=== PATIENT | male | born 1960 | race Caucasian/White ===

== ENCOUNTER 2020-08-19 10:00 | Outpatient (CLI) | payer SELFPAY ==
[~2020-08-19] VITALS: Ht 182.9 cm; Wt 99.8 kg
[2020-08-19] MEDS ORDERED: NO HOME MEDS (15:50)
[2020-08-21] MEDS ORDERED: ringers solution, lacted 1,000 ML IV SCH (05:00)
[2020-08-21] MEDS ORDERED: famotidine 20mg tablet PO ONE (05:30)
== END 2020-08-19 23:59 | disposition home or self-care (01) ==
LOC: PRE-OP 10:00 → EDSTATUS 08-21 15:30
PROVIDERS: ATTEND Podiatrist Foot & Ankle Surgery
DX: Z01.818 Encounter for other preprocedural examination (principal)
CPT/HCPCS: 36415; 93005; J7120; U0003; U0005